=== PATIENT | male | born 1960 | race Caucasian/White ===

== ENCOUNTER 2017-07-23 08:51 | Emergency (ER) | payer OTHER, BC ==
[~2017-07-23] VITALS: Ht 172.7 cm; Wt 107.6 kg
[~2017-07-23 08:51] MED LIST: ACTOS30 MG PO; ANTIVERT25 MG PO; Aldactone PO; BENTYL10 MG PO; CARAFATE100 MG/ML; CARAFATE100 MG/ML PO; CIPRO500 MG PO; Combivent IH; Coreg PO; DEXILANT60 MG PO; FLAGYL500 MG PO; FUROSEMIDE40 MG PO; Glucophage PO; HYDROCODON-ACE1 EAC7 PO; IBUPROFEN600 MG PO; JANUMET 50/11 TABLET; Janumet 50/500 PO; LANTUS 3 M100 UNITS1 SC; Lasix PO; PROTONIX40 MG PO; Protonix PO; TRULICITY1.5 MG/0.5 SC; Tylenol/Codeine #3 PO; ZOFRAN4 MG PO; Zestril,Prinivil PO
[2017-07-23] MEDS ORDERED: PREDNISONE50 MG PO (09:48)
[2017-07-23] MEDS ORDERED: ZITHROMAX250 MG PO (09:48)
[2017-07-23] MEDS ORDERED: VENTOLIN HFA18 GM IH (09:48)
[2017-07-23 10:16] VITALS: BP 134/68
== END 2017-07-23 10:18 | disposition home or self-care (01) ==
LOC: EME 08:51
DX: J18.9 Pneumonia, unspecified organism (principal); E11.9 Type 2 diabetes mellitus without complications; I50.9 Heart failure, unspecified; K21.9 Gastro-esophageal reflux disease without esophagitis; Z95.810 Presence of automatic (implantable) cardiac defibrillator; Z90.49 Acquired absence of other specified parts of digestive tract; Z79.84 Long term (current) use of oral hypoglycemic drugs; Z87.891 Personal history of nicotine dependence
CPT/HCPCS: 71046; 94640; 99281; 99284; J7512